=== PATIENT | male | born 1960 | race Caucasian/White ===

== ENCOUNTER 2022-07-28 11:16 | Emergency (ER) | payer MEDICARE, OTHER ==
[2022-07-28 12:19] LABS: ALT (SGPT) 18 U/L (8-55); AST (SGOT) 20 U/L (5-34); Albumin 4.1 g/dL (3.5-5.0); Alkaline Phosphatase 87 U/L (40-110); Anion Gap 13 mmol/L (10-20); BUN (Urea Nitrogen) 16 mg/dL (8.4-25.7); Bilirubin, Total 0.4 mg/dL (0.2-1.2); Calc. Creatinine Clearance 0 mL/min (70-130); Calcium 8.8 mg/dL (7.8-10.44); Carbon Dioxide 22 mmol/L (22-29); Chloride 98 mmol/L (98-107); Estimated GFR 73; Globulin 3.7 g/dL (2.4-3.5); Glucose 107 mg/dL (70-105); Potassium 4.3 mmol/L (3.5-5.1); Protein, Total 7.8 g/dL (6.0-8.3); Sodium 129 mmol/L (136-145)
[2022-07-28 12:22] LABS: #Basophils 0.1 10x3/uL (0.0-0.2); #Eosinphils 0.3 10x3/uL (0.0-0.5); #Monocytes 0.7 10x3/uL (0.0-1.1); %Basophils 0.7 % (0.0-2.0); %Eosinophils 3.9 % (0.0-6.0); %Lymphocytes 17.8 % (18.0-47.0); %Monocytes 9.5 % (0.0-10.0); %Neutrophils 67.7 % (40.0-75.0); Hemoglobin 12.9 g/dL (13.5-17.5); Mean Corpuscular HGB CONC 34.4 g/dL (32.0-36.0); Mean Corpuscular Hemoglobin 32.3 pg (27.0-33.0); Mean Platelet Volume 9.3 fl (7.4-10.4); Platelet Count 191 10x3/uL (150-450); Red Blood Cell (RBC) Count 3.99 10x6/uL (4.32-5.72); White Blood Cell (WBC) Count 7.6 10x3/uL (3.5-10.5)
[2022-07-28] MEDS ORDERED: Lidocaine 1% (PF) 30 ML VIAL ONE (13:16)
== END 2022-07-28 14:48 | disposition home or self-care (01) ==
LOC: CSHERS 11:16
DX: L02.416 Cutaneous abscess of left lower limb (principal); L03.116 Cellulitis of left lower limb; E11.9 Type 2 diabetes mellitus without complications
CPT/HCPCS: 10060; 80053; 83605; 85025; J2001

== ENCOUNTER 2022-08-15 08:31 | Outpatient (CLI) | payer OTHER | END 2022-08-15 08:32 | disposition home or self-care (01) | LOC: CSHWCC 08:31 | PROVIDERS: ATTEND Nurse Practitioner Family | DX: S81.802A Unspecified open wound, left lower leg, initial encounter (principal) | CPT/HCPCS: 10140; 97139; 97607; G0463; 99203 ==

== ENCOUNTER 2022-08-18 08:39 | Outpatient (CLI) | payer OTHER | END 2022-08-18 08:40 | disposition home or self-care (01) | LOC: CSHWCC 08:39 | PROVIDERS: ATTEND Nurse Practitioner Family | DX: S81.802D Unspecified open wound, left lower leg, subsequent encounter (principal) | CPT/HCPCS: 97139; G0463; 99212 ==

== ENCOUNTER 2022-08-21 09:35 | Outpatient (CLI) | payer OTHER | END 2022-08-21 09:36 | disposition home or self-care (01) | LOC: CSHWCC 09:35 | PROVIDERS: ATTEND Nurse Practitioner Family | DX: S81.802D Unspecified open wound, left lower leg, subsequent encounter (principal) | CPT/HCPCS: 11042; 97607 ==

== ENCOUNTER 2022-08-28 08:59 | Outpatient (CLI) | payer OTHER | END 2022-08-28 09:00 | disposition home or self-care (01) | LOC: CSHWCC 08:59 | PROVIDERS: ATTEND Nurse Practitioner Family | DX: E11.621 Type 2 diabetes mellitus with foot ulcer (principal); L97.412 Non-pressure chronic ulcer of right heel and midfoot with fat layer exposed; S81.802D Unspecified open wound, left lower leg, subsequent encounter; R60.0 Localized edema | CPT/HCPCS: 99213; G0463 ==

== ENCOUNTER 2022-09-04 10:25 | Outpatient (CLI) | payer OTHER | END 2022-09-04 10:26 | disposition home or self-care (01) | LOC: CSHWCC 10:25 | PROVIDERS: ATTEND Nurse Practitioner Family | DX: E11.621 Type 2 diabetes mellitus with foot ulcer (principal); L97.412 Non-pressure chronic ulcer of right heel and midfoot with fat layer exposed; S81.802D Unspecified open wound, left lower leg, subsequent encounter; R60.0 Localized edema ==

== ENCOUNTER 2022-09-08 09:31 | Outpatient (CLI) | payer OTHER | END 2022-09-08 09:32 | disposition home or self-care (01) | LOC: CSHWCC 09:31 | PROVIDERS: ATTEND Nurse Practitioner Family | DX: S81.802D Unspecified open wound, left lower leg, subsequent encounter (principal); R60.0 Localized edema | CPT/HCPCS: 29581 ==

== ENCOUNTER 2022-09-11 13:17 | Outpatient (CLI) | payer OTHER | END 2022-09-11 13:18 | disposition home or self-care (01) | LOC: CSHWCC 13:17 | PROVIDERS: ATTEND Nurse Practitioner Family | DX: S81.802D Unspecified open wound, left lower leg, subsequent encounter (principal); R60.0 Localized edema | CPT/HCPCS: 11042 ==

== ENCOUNTER 2022-09-14 09:49 | Outpatient (CLI) | payer OTHER | END 2022-09-14 09:50 | disposition home or self-care (01) | LOC: CSHWCC 09:49 | PROVIDERS: ATTEND Nurse Practitioner Family | DX: S81.802D Unspecified open wound, left lower leg, subsequent encounter (principal); E11.621 Type 2 diabetes mellitus with foot ulcer; L97.412 Non-pressure chronic ulcer of right heel and midfoot with fat layer exposed; R60.0 Localized edema ==

== ENCOUNTER 2022-09-18 09:11 | Outpatient (CLI) | payer OTHER | END 2022-09-18 09:12 | disposition home or self-care (01) | LOC: CSHWCC 09:11 | PROVIDERS: ATTEND Nurse Practitioner Family | DX: E11.621 Type 2 diabetes mellitus with foot ulcer (principal); L97.412 Non-pressure chronic ulcer of right heel and midfoot with fat layer exposed; S81.802D Unspecified open wound, left lower leg, subsequent encounter; R60.0 Localized edema | CPT/HCPCS: 99213; G0463 ==

== ENCOUNTER 2022-09-21 11:04 | Outpatient (CLI) | payer OTHER | END 2022-09-21 11:05 | disposition home or self-care (01) | LOC: CSHWCC 11:04 | PROVIDERS: ATTEND Nurse Practitioner Family | DX: S81.802D Unspecified open wound, left lower leg, subsequent encounter (principal); R60.0 Localized edema ==

== ENCOUNTER 2022-09-29 09:31 | Outpatient (CLI) | payer OTHER | END 2022-09-29 09:32 | disposition home or self-care (01) | LOC: CSHWCC 09:31 | PROVIDERS: ATTEND Nurse Practitioner Family | DX: S81.802D Unspecified open wound, left lower leg, subsequent encounter (principal); R60.0 Localized edema | CPT/HCPCS: 29581 ==

== ENCOUNTER 2022-10-06 08:51 | Outpatient (CLI) | payer OTHER | END 2022-10-06 08:52 | disposition home or self-care (01) | LOC: CSHWCC 08:51 | PROVIDERS: ATTEND Nurse Practitioner Family | DX: S81.802D Unspecified open wound, left lower leg, subsequent encounter (principal); R60.0 Localized edema ==

== ENCOUNTER 2022-10-13 08:53 | Outpatient (CLI) | payer OTHER | END 2022-10-13 08:54 | disposition home or self-care (01) | LOC: CSHWCC 08:53 | PROVIDERS: ATTEND Nurse Practitioner Family | DX: S81.802D Unspecified open wound, left lower leg, subsequent encounter (principal); R60.0 Localized edema | CPT/HCPCS: 99212; G0463 ==

== ENCOUNTER 2022-11-14 08:35 | Outpatient (CLI) | payer OTHER | END 2022-11-14 08:36 | disposition home or self-care (01) | LOC: CSHWCC 08:35 | PROVIDERS: ATTEND Nurse Practitioner Family | DX: S91.301S Unspecified open wound, right foot, sequela (principal) ==

== ENCOUNTER 2022-11-28 09:32 | Outpatient (CLI) | payer OTHER | END 2022-11-28 09:33 | disposition home or self-care (01) | LOC: CSHWCC 09:32 | PROVIDERS: ATTEND Nurse Practitioner Family | DX: S91.301S Unspecified open wound, right foot, sequela (principal) ==